=== PATIENT | female | born 1980 | race Two or more races ===

== ENCOUNTER 2017-02-03 00:03 | Emergency (ER) | payer BC ==
[2017-02-03 00:07] VITALS: BP 121/79; PULSE 86; TEMP 98.1; BMI 22.5
--- NOTE | 2017-02-03 00:25 | PDOC ---
History of Present Illness - General Chief Complaint: Blood Sugar Problem Stated Complaint: HIGH GLUCOSE History Source: Patient Exam Limitations: No Limitations - History of Present Illness Initial Comments: 02/03/17 00:30 This is a 37-year-old female who comes in complaining of high sugars. Patient was recently diagnosed with type 2 diabetes and started on metformin. Patient said she's been on the metformin for 3 days. 3 days ago patient had sugars that were in the mid to high 200s and she comes in tonight complaining of a sugar that's 298. Patient said she's been taken her metformin as prescribed. Patient is concerned that her sugars have not improved. Patient had an A1c done that was also greater than 14. Patient otherwise denies chills, body aches, cough, congestion, nausea, vomiting or any other complaints. Patient takes no other medications and is otherwise healthy. Patient has a appointment with the accessioner for early next week in about 3 days. PAST MEDICAL HISTORY: no significant history PAST SURGICAL HISTORY: no significant history FAMILY HISTORY: no pertinant history SOCIAL HISTORY: Pt lives with family and is employed. MEDICATIONS: reviewed ALLERGIES: As per nursing notes Review of Systems General: No fevers or chills, no weakness, no weight loss HEENT: No change in vision. No sore throat,. No ear pain CardioVascular: No chest pain or shortness of breath Respiratory:No cough, or wheezing. Gastrointestinal: no nausea, vomitting, diarrhea or constipation, No rectal bleeding Genitourinary: No dysuria, hematuria, or frequency Musculoskeletal: No joint or muscle pain or swelling Neurologic: No headache, vertigo, dizziness or loss of consciousness Psychiatric: nor depression Skin: No rashes or easy bruising Endocrine: + increased thirst, no abnormal weight change Allergic: no skin or latex allergy All other systems reviewed and normal GENERAL: The patient is awake, alert, and fully oriented, in no acute distress. HEAD: Normal with no signs of trauma. EYES: Pupils equal, round and reactive to light, extraocular movements intact, sclera anicteric, conjunctiva clear. EXTREMITIES: Normal range of motion, no edema. NEUROLOGICAL: Normal speech, normal gait. grossly intact PSYCH: Normal mood, normal affect. SKIN: Warm, Dry, normal turgor, no rashes or lesions noted. Assessment and plan: This is a 37-year-old female who comes in because of elevated blood sugars. Patient's glucose in the emergency room was approximately 300. This is what patient sugars have been running based on a hemoglobin A1c 3 days ago of 14 Discussed with patient modifications to her diet that will help control her sugars. Reassured patient that it may take several days for her medication to begin to bring down her sugars into a more normal range. Patient has an accessioner appointment that she will keep. Patient discharged home with her . Past History - Past Medical History Allergies/Adverse Reactions: Allergies Allergy/AdvReac Type Severity Reaction Status Date / Time No Known Allergies Allergy Unverified 02/03/17 00:04 Home Medications: Ambulatory Orders Metformin HCl [Glucophage -] 500 mg PO DAILY 02/03/17 *DC/Admit/Observation/Transfer Diagnosis at time of Disposition: Hyperglycemia - Discharge Dispostion Disposition: HOME Condition at time of disposition: Stable - Referrals Referrals: Cherie Dodge [Primary Care Provider] - - Patient Instructions Printed Discharge Instructions: DI for Hyperglycemia -- Adult Additional Instructions: Educate yourself as to what is a healthy diet for someone who is a diabetic. Diet as discussed should be higher in protein, and lower in those foods that converted to sugars as discussed. Make sure you stay well hydrated Return to the emergency department immediately with ANY new, persistent or worsening symptoms. Continue any medications as previously prescribed by your physician. Keep your appointment with your accessioner . Please make sure your doctor reviews the results of your emergency evaluation. Thank you for coming to the Emergency Department today for your care. It was a pleasure to see you today. Please note that your evaluation is INCOMPLETE until you follow-up with your doctor. - Post Discharge Activity
== END 2017-02-03 00:30 | disposition home or self-care (01) ==
LOC: FER 00:03
DX: E11.65 Type 2 diabetes mellitus with hyperglycemia (principal); Z79.84 Long term (current) use of oral hypoglycemic drugs
CPT/HCPCS: 99281-25